=== PATIENT | male | born 1945 | race African-American/Black ===

== ENCOUNTER → 2016-05-27 | Outpatient (CLI) | payer OTHER ==
[~2016-05-27] MED LIST: AMLO10TA2 OR; CARV25TA55 OR; FLUT100M7 IN; HYDR-2651 PO; ISOS20TA56 PO; METF100097 OR; POTA10CA29 OR
== END | disposition home or self-care (01) ==
LOC: LAB 07:33
PROVIDERS: ATTEND Urology
DX: R97.20 Elevated prostate specific antigen [PSA] (principal); N52.9 Male erectile dysfunction, unspecified; Z96.89 Presence of other specified functional implants
CPT/HCPCS: 84153; 84154

== ENCOUNTER → 2016-07-06 | Outpatient (CLI) | payer OTHER ==
[2016-07-06 08:34] LABS: Basophils # (auto) 0 uL; Basophils % (auto) 0.5 % (0.0-2.0); Eosinophils # (auto) 0.2 uL; Eosinophils % (auto) 2.3 % (0.0-7.0); Hematocrit 42.7 % (41.0-53.0); Hemoglobin 13.9 g/dL (13.5-17.5); Lymphocytes % (auto) 24.8 % (10.0-50.0); Mean Corpuscular Hemoglobin 30.7 pg (28.0-32.0); Mean Corpuscular Hgb Conc. 32.6 g/dL (32.0-36.0); Mean Corpuscular Volume 94.2 fL (80.0-100.0); Mean Platelet Volume 8.6 fL (7.4-10.4); Monocytes # (auto) 0.8 uL; Monocytes % (auto) 9.4 % (0.0-12.0); Neutrophils # (auto) 5.1 uL; Platelet Count (auto) 223 10^3/uL (140-450); Red Cell Distribution Width 14.6 % (11.6-16.0); White Blood Cell 8.1 10^3/uL (4.4-10.8)
[2016-07-06 08:57] LABS: Albumin 3.6 g/dL (3.4-5.0); BUN/Creatinine Ratio 13.6; Bilirubin, Total 0.5 mg/dL (0.2-1.0); Calcium 9.2 mg/dL (8.5-10.1); Potassium 4.7 mmol/L (3.5-5.1); Total Protein 6.9 g/dL (6.4-8.2)
[2016-07-06 09:17] LABS: Urine Bilirubin Negative (Negative); Urine Blood Negative /uL (Negative); Urine Color Yellow (Yellow); Urine Glucose Normal (Normal); Urine Ketone Negative (Negative); Urine Mucus FEW (None Seen); Urine Nitrite Negative (Negative); Urine RBC 1 /hpf (0 - 3); Urine Squamous Epithelial Cell FEW /hpf (<5); Urine Urobilinogen Normal (Negative)
== END | disposition home or self-care (01) ==
LOC: LAB 07:30
DX: E55.9 Vitamin D deficiency, unspecified (principal); E11.21 Type 2 diabetes mellitus with diabetic nephropathy; K63.5 Polyp of colon; Z12.5 Encounter for screening for malignant neoplasm of prostate
CPT/HCPCS: 36415; 80053; 80061; 81001; 82270; 82306; 83036; 84153; 84154; 84443; 85025

== ENCOUNTER → 2016-07-15 | Outpatient (CLI) | payer OTHER | END | disposition home or self-care (01) | LOC: LAB 10:00 | PROVIDERS: ATTEND Urology | DX: C61 Malignant neoplasm of prostate (principal) ==

== ENCOUNTER → 2016-08-18 | Outpatient (CLI) | payer OTHER | END | disposition home or self-care (01) | LOC: XY 08:29 | PROVIDERS: ATTEND Urology | DX: C61 Malignant neoplasm of prostate (principal) | CPT/HCPCS: 78306; A9503 ==

== ENCOUNTER 2016-11-18 06:05 | Inpatient (IN) | payer OTHER ==
[2016-11-16 12:38] LABS: Basophils # (auto) 0 uL; Basophils % (auto) 0.3 % (0.0-2.0); CONDITION Y; Eosinophils # (auto) 0.2 uL; Hematocrit 43.5 % (41.0-53.0); Hemoglobin 14.2 g/dL (13.5-17.5); Lymphocytes # (auto) 2.1 uL; Lymphocytes % (auto) 26.8 % (10.0-50.0); Mean Corpuscular Hgb Conc. 32.7 g/dL (32.0-36.0); Mean Corpuscular Volume 94.8 fL (80.0-100.0); Mean Platelet Volume 8.8 fL (7.4-10.4); Monocytes # (auto) 0.8 uL; Monocytes % (auto) 9.9 % (0.0-12.0); Neutrophils # (auto) 4.8 uL; Platelet Count (auto) 230 10^3/uL (140-450); Red Cell Distribution Width 15.1 % (11.6-16.0)
[2016-11-16 12:43] LABS: Urine Bilirubin Negative (Negative); Urine Blood Negative /uL (Negative); Urine Color Yellow (Yellow); Urine Glucose Normal (Normal); Urine Ketone Negative (Negative); Urine Mucus FEW (None Seen); Urine Nitrite Negative (Negative); Urine RBC 1 /hpf (0 - 3); Urine Squamous Epithelial Cell FEW /hpf (<5); Urine Urobilinogen Normal (Negative); Urine pH 5.5 (5.0-8.0)
[2016-11-16 12:58] LABS: INR 0.99 (0.9-1.15); Partial Thromboplastin Time 24.7 sec (22.64-33.71); Prothrombin Time 10.8 sec (9.37-12.3)
[2016-11-16 13:05] LABS: Albumin 3.7 g/dL (3.4-5.0); BUN/Creatinine Ratio 13.8; Bilirubin, Total 0.5 mg/dL (0.2-1.0); Calcium 9.8 mg/dL (8.5-10.1); Potassium 4.9 mmol/L (3.5-5.1); Total Protein 7.2 g/dL (6.4-8.2)
[~2016-11-18] VITALS: Ht 170.2 cm; Wt 80.3 kg
[~2016-11-18 06:05] MED LIST changes: +SPIR25TA89 PO
[2016-11-18] MEDS ORDERED: ROCURONIUM 10MG/ML 10ML VIAL IV ONE (07:15)
[2016-11-18] MEDS ORDERED: HYDROmorphone HCL 2 MG/ML VL ONE (07:24)
[2016-11-18] MEDS ORDERED: fentaNYL CITRATE 100 MCG/2 ML VL ONE (07:25)
[2016-11-18] MEDS ORDERED: MIDAZOLAM HCL 1MG/1ML-2 ML VIAL ONE (07:25)
[2016-11-18] MEDS ORDERED: fentaNYL CITRATE 5 ML ONE (07:25)
[2016-11-18] MEDS ORDERED: ceFOXitin 2GM/100ML D5W 100 ML IV ONE (07:30)
[2016-11-18] MEDS ORDERED: BUPIVACAINE 0.25% INJ 50ML VIAL ONE (07:40)
[2016-11-18] MEDS ORDERED: LIDOCAINE W/ EPINEPHRINE 1 % INJ 30ML ONE (07:40)
[2016-11-18] MEDS ORDERED: SUCCINYLCHOLINE CHLORIDE 20 MG/ML 10ML VIAL IV ONE (07:40)
[2016-11-18] MEDS ORDERED: NEOSTIGMINE 1 MG/ML INJ (10mg/10ML VIAL) ONE (08:50)
[2016-11-18] MEDS ORDERED: ETOMIDATE (2MG/ML) 20ML VIAL IV ONE (08:50)
[2016-11-18] MEDS ORDERED: PROPOFOL 10 MG/ML 20 ML IV ONE ×3 (08:50→09:53)
[2016-11-18] MEDS ORDERED: GLYCOPYRROLATE 0.2 MG/ML 1ML VIAL ONE (08:50)
[2016-11-18] MEDS ORDERED: DEXAMETHASONE SOD PHOS 10MG/1ML VIAL INJ ONE (08:50)
[2016-11-18] MEDS ORDERED: ACETAMINOPHEN/CODEINE#3 (300/30mg) TAB PO PRN (09:00)
[2016-11-18] MEDS ORDERED: diphenhdrAMINE HCL 50 MG/1 ML VL IV PRN (09:00)
[2016-11-18] MEDS: CEFOXITIN SODIUM 1 GM in D5W 5% 50 ML IV SCH ×2 (09:00→18:57)
[2016-11-18] MEDS ORDERED: ONDANSETRON HCL 4 MG/2 ML VIAL IV PRN (09:00)
[2016-11-18] MEDS ORDERED: DEXTROSE (50%) 50ML SYRG IV PRN (09:00)
[2016-11-18] MEDS: hydrALAZINE HCL 25 MG TAB PO SCH ×2 (10:00→21:44)
[2016-11-18] MEDS: SPIRONOLACTONE 25 MG TAB PO SCH (10:00)
[2016-11-18] MEDS: CARVEDILOL 12.5 MG TAB PO SCH ×2 (10:00→21:44)
[2016-11-18] MEDS: metFORMIN HYDROCHLORIDE 500 MG TAB PO SCH ×2 (10:00→21:44)
[2016-11-18] MEDS: amLODIPine BESYLATE 5 MG TAB PO SCH (10:00)
[2016-11-18] MEDS: POTASSIUM CHL 10 Meq TABLET PO SCH ×2 (10:00→21:45)
[2016-11-18] MEDS: ISOSORBIDE DINITRATE 10 MG TAB PO SCH ×2 (10:00→21:44)
[2016-11-18] MEDS ORDERED: KETOROLAC TROMETH 30 MG/ML 1ML VIAL IV ONE (10:15)
[2016-11-18] MEDS ORDERED: MIDAZOLAM HCL 1MG/1ML-2 ML VIAL IV PRN (10:15)
[2016-11-18] MEDS ORDERED: ONDANSETRON HCL 4 MG/2 ML VIAL IV ONE (10:15)
[2016-11-18] MEDS ORDERED: ePHEDrine SULFATE 50 MG/ML AMP IV PRN (10:15)
[2016-11-18] MEDS ORDERED: MORPHINE SULF INJ 2 MG/ML SYRINGE 1ML IV PRN ×2 (10:15→13:30)
[2016-11-18] MEDS ORDERED: LABETALOL HCL 5 MG/ML 4ML SYRINGE IV PRN (10:15)
[2016-11-18] MEDS ORDERED: HYDROmorphone HCL 2 MG/ML VL IV PRN (10:15)
[2016-11-18] MEDS ORDERED: ACCU-CHEK COMFORT CURVE STRIP VI ONE (10:15)
[2016-11-18] MEDS: ACCU-CHEK COMFORT CURVE STRIP VI SCH ×3 (11:30→21:45)
[2016-11-18] MEDS: ALBUTEROL SULF 2.5 MG/0.5ML(0.5%) NEB SOLN NEB SCH ×2 (12:20→19:08)
[2016-11-18] MEDS: BUDESONIDE (INHALATION) 0.5 MG/2 ML NEB NEB SCH ×2 (12:20→19:08)
[2016-11-18 12:24] LABS: Base Excess -4.6 mmol/L (-2.0-2.0); Blood 02Sat 96.8 % (96-100); Blood COHb 0.3 % (0.5-1.5); Blood MetHb 0.3 % (0.0-1.5); HCO3 22.4 mmol/L (22-26.0); HHb 3.2 % (0.0-5.0); MODE MASK - SIMPLE; O2Hb 96.2 % (94.0-97.0); PCO2 48.7 mmHg (35.0-45.0); PCO2(T) 48.7 mmHg (35.0-45.0); PO2 110.3 mmHg (80.0-100.0); PO2(T) 110.3 mmHg (80.0-100.0); Sample Type Arterial; pH 7.281 (7.350-7.450)
[2016-11-18] MEDS: InsuLIN REG 1unit/0.01ml Soln (100units/ml) SC SCH ×2 (13:00→17:12)
[2016-11-18] MEDS ORDERED: NITROGLYCERIN 0.4 MG SL TAB SL PRN (13:30)
[2016-11-18 14:43] VITALS: BP 133/67
[2016-11-18] MEDS: SOD CHL 0.45% 1,000 ML IV SCH ×2 (16:54→18:56)
[2016-11-18 17:00] VITALS: BP 134/71
[2016-11-18 17:19] VITALS: BP 133/67
[2016-11-18] MEDS: HYDROmorphone HCL 2 MG/ML VL IV PRN (18:40)
[2016-11-18] MEDS ORDERED: InsuLIN REG 1unit/0.01ml Soln (100units/ml) SC SCH (22:00)
[2016-11-19] MEDS: ALBUTEROL SULF 2.5 MG/0.5ML(0.5%) NEB SOLN NEB SCH ×3 (00:29→11:15)
[2016-11-19] MEDS: CEFOXITIN SODIUM 1 GM in D5W 5% 50 ML IV SCH ×2 (00:32→09:19)
[2016-11-19] MEDS: SOD CHL 0.45% 1,000 ML IV SCH ×2 (00:32→08:34)
[2016-11-19 02:08] VITALS: BP 132/69
[2016-11-19 05:00] VITALS: BP 112/61
[2016-11-19] MEDS: ACCU-CHEK COMFORT CURVE STRIP VI SCH ×2 (05:57→11:42)
[2016-11-19] MEDS: InsuLIN REG 1unit/0.01ml Soln (100units/ml) SC SCH ×2 (06:07→11:43)
[2016-11-19] MEDS: BUDESONIDE (INHALATION) 0.5 MG/2 ML NEB NEB SCH (06:07)
[2016-11-19 06:37] LABS: Calcium 8.4 mg/dL (8.5-10.1)
[2016-11-19 06:38] LABS: BUN/Creatinine Ratio 11.3
[2016-11-19] MEDS: HYDROmorphone HCL 2 MG/ML VL IV PRN (07:52)
[2016-11-19 08:00] VITALS: BP 121/60
[2016-11-19] MEDS: metFORMIN HYDROCHLORIDE 500 MG TAB PO SCH (09:09)
[2016-11-19] MEDS: SPIRONOLACTONE 25 MG TAB PO SCH (09:10)
[2016-11-19] MEDS: POTASSIUM CHL 10 Meq TABLET PO SCH (09:10)
[2016-11-19] MEDS: hydrALAZINE HCL 25 MG TAB PO SCH (09:12)
[2016-11-19 09:14] VITALS: BP 121/60
[2016-11-19] MEDS: amLODIPine BESYLATE 5 MG TAB PO SCH (10:00)
[2016-11-19] MEDS: ISOSORBIDE DINITRATE 10 MG TAB PO SCH (10:00)
[2016-11-19] MEDS: CARVEDILOL 12.5 MG TAB PO SCH (10:00)
[2016-11-19 11:16] VITALS: BP 121/60
[2016-11-19 13:15] VITALS: BP 117/63
== END 2016-11-19 15:00 | disposition home or self-care (01) | DRG 707 ==
LOC: SUR 06:05 → WEST WING 06:06 → TELE-WESTW 11-19 11:50
PROVIDERS: ADMIT Urology; ATTEND Internal Medicine
PROC: 8E0W4CZ Robotic Assisted Procedure of Trunk Region, Percutaneous Endoscopic Approach (ICD-10-PCS; 2016-11-18)
PROC: 0VT04ZZ Resection of Prostate, Percutaneous Endoscopic Approach (ICD-10-PCS; principal; 2016-11-18 07:39)
DX: C61 Malignant neoplasm of prostate (principal); I13.0 Hypertensive heart and chronic kidney disease with heart failure and stage 1 through stage 4 chronic kidney disease, or unspecified chronic kidney disease; I50.32 Chronic diastolic (congestive) heart failure; E11.22 Type 2 diabetes mellitus with diabetic chronic kidney disease; N18.3 Chronic kidney disease, stage 3 (moderate); Z90.79 Acquired absence of other genital organ(s)
CPT/HCPCS: 36415; 80048; 80053; 81001; 82962; 85025; 85610; 85730; 94640; J0330; J0694; J1100; J1815; J2250; J2405; J2704; J3490; J7060

== ENCOUNTER → 2017-01-21 | Outpatient (CLI) | payer OTHER ==
[2017-01-21 07:08] LABS: Urine Bilirubin Negative (Negative); Urine Blood Negative /uL (Negative); Urine Color Yellow (Yellow); Urine Glucose Normal (Normal); Urine Ketone Negative (Negative); Urine Nitrite Negative (Negative); Urine RBC 1 /hpf (0 - 3); Urine Squamous Epithelial Cell FEW /hpf (<5); Urine Urobilinogen Normal (Negative)
[2017-01-21 07:31] LABS: Albumin 3.7 g/dL (3.4-5.0); BUN/Creatinine Ratio 14.4; Bilirubin, Total 0.4 mg/dL (0.2-1.0); Calcium 8.8 mg/dL (8.5-10.1); Potassium 3.9 mmol/L (3.5-5.1); Total Protein 7.2 g/dL (6.4-8.2)
== END | disposition home or self-care (01) ==
LOC: LAB 06:45
PROVIDERS: ATTEND Internal Medicine
DX: E11.9 Type 2 diabetes mellitus without complications (principal); I10 Essential (primary) hypertension
CPT/HCPCS: 36415; 80053; 81001; 82043; 82607; 83036

== ENCOUNTER → 2017-02-28 | Outpatient (CLI) | payer OTHER ==
[~2017-02-28] MED LIST changes: -HYDR-2651 PO; +HYDR25TA35 PO
== END | disposition home or self-care (01) ==
LOC: XY 10:47
PROVIDERS: ATTEND Internal Medicine
DX: I65.23 Occlusion and stenosis of bilateral carotid arteries (principal); I77.1 Stricture of artery; Q76.49 Other congenital malformations of spine, not associated with scoliosis; E11.9 Type 2 diabetes mellitus without complications
CPT/HCPCS: 93880

== ENCOUNTER → 2017-03-02 | Outpatient (CLI) | payer OTHER | END | disposition home or self-care (01) | LOC: XYW 09:47 | PROVIDERS: ATTEND Internal Medicine | DX: I70.0 Atherosclerosis of aorta (principal); I08.0 Rheumatic disorders of both mitral and aortic valves | CPT/HCPCS: 93306 ==

== ENCOUNTER → 2017-03-22 | Outpatient (CLI) | payer OTHER | END | disposition home or self-care (01) | LOC: LAB 08:01 | PROVIDERS: ATTEND Urology | DX: C61 Malignant neoplasm of prostate (principal) | CPT/HCPCS: 84153 ==

== ENCOUNTER 2017-05-13 08:52 | Day surgery (SDC) | payer OTHER ==
[2017-05-10 13:03] LABS: Basophils # (auto) 0 uL; Basophils % (auto) 0.7 % (0.0-2.0); Eosinophils # (auto) 0.3 uL; Eosinophils % (auto) 4.1 % (0.0-7.0); Hematocrit 42.8 % (41.0-53.0); Hemoglobin 13.7 g/dL (13.5-17.5); Lymphocytes % (auto) 29.5 % (10.0-50.0); Mean Corpuscular Hemoglobin 30.3 pg (28.0-32.0); Mean Corpuscular Hgb Conc. 32.1 g/dL (32.0-36.0); Mean Corpuscular Volume 94.4 fL (80.0-100.0); Monocytes # (auto) 0.8 uL; Monocytes % (auto) 12.4 % (0.0-12.0); Neutrophils # (auto) 3.6 uL; Neutrophils % (auto) 53.3 % (37.0-80.0); Platelet Count (auto) 179 10^3/uL (140-450); Red Blood Cells 4.53 10^6/uL (4.5-5.90); Red Cell Distribution Width 15.4 % (11.8-14.3); White Blood Cell 6.8 10^3/uL (4.4-10.8)
[2017-05-10 13:16] LABS: Prothrombin Time 10.9 sec (9.37-12.3)
[~2017-05-13] VITALS: Ht 167.6 cm; Wt 78.9 kg
[~2017-05-13 08:52] MED LIST changes: +ALEN70TA55 PO; +ASPI81TA27 PO; +ERGO2000 PO; +OMEG120017 PO; +RED600TA PO; -SPIR25TA89 PO
[2017-05-13] MEDS ORDERED: SODIUM CHLORIDE LOCK 10 ML ONE (09:32)
[2017-05-13] MEDS ORDERED: MIDAZOLAM HCL 5 MG/ML-1ML VIAL ONE (09:32)
[2017-05-13] MEDS ORDERED: fentaNYL CITRATE 100 MCG/2 ML VL ONE (09:32)
[2017-05-13] MEDS ORDERED: diphenhdrAMINE HCL 50 MG/1 ML VL ONE (09:33)
[2017-05-13 10:34] VITALS: BP 145/69
== END 2017-05-13 10:34 | disposition home or self-care (01) ==
LOC: GI 08:52
PROVIDERS: ATTEND Internal Medicine Gastroenterology
DX: Z12.11 Encounter for screening for malignant neoplasm of colon (principal); K63.5 Polyp of colon; K64.8 Other hemorrhoids; Z80.0 Family history of malignant neoplasm of digestive organs; E66.9 Obesity, unspecified; Z68.28 Body mass index [BMI] 28.0-28.9, adult; I50.9 Heart failure, unspecified; J44.9 Chronic obstructive pulmonary disease, unspecified; C61 Malignant neoplasm of prostate; E11.9 Type 2 diabetes mellitus without complications
CPT/HCPCS: 36415; 45380; 82962; 85025; 85610; 88305; 88341; 88342; J1200; J2250; J3010; J7030; 99152